=== PATIENT | male | born 1945 | race Caucasian/White ===

== ENCOUNTER 2023-10-07 20:34 | Observation (INO) | payer OTHER, MEDICARE, SELFPAY ==
[2023-10-07 15:34] VITALS: BMI 28.3
[2023-10-07 15:53] VITALS: BP 154/86
[2023-10-07 16:18] LABS: % Basophils 0.6 % (0-2); % Eosinophils 2.2 % (0-6); % Immature Granulocytes 0.3 % (0-0.5); % Lymphocytes 16.7 % (20.5-51.1); % Neutrophils 70.2 % (42.2-75.2); Absolute Basophils 0.1 10^3/uL (0-0.2); Absolute Eosinophils 0.2 10^3/uL (0-0.7); Absolute Lymphocytes 1.4 10^3/uL (1.2-3.4); Absolute Monocytes 0.9 10^3/uL (0.1-0.6); Absolute Neutrophils 6.1 10^3/uL (1.4-6.5); Hematocrit 39.7 % (39.0-52.0); Hemoglobin 13.5 g/dL (13.0-18.0); Mean Corpuscular Hgb 30.4 pg (27.0-31.0); Mean Corpuscular Volume 89.4 fL (80.0-94.0); Mean Platelet Volume 9.9 fL (7.4-10.4); Nucleated Red Blood Cells % 0 % (-); Platelet Count 284 10^3/uL (130-400); Red Blood Cell Count 4.44 10^6/uL (4.70-6.10); Red Cell Dist. Width 14.6 % (11.5-14.5); White Blood Cell Count 8.6 10^3/uL (4.8-10.8)
[2023-10-07 16:25] LABS: Erythrocyte Sed Rate 25 mm/hour (0-20)
[2023-10-07 16:31] LABS: ALT (SGPT) 19 U/L (0-50); AST (SGOT) 25 U/L (17-59); Albumin 3.9 g/dl (3.5-5.0); Alkaline Phosphatase 88 U/L (38-126); Blood Urea Nitrogen 16 mg/dl (9-20); Calcium 9.6 mg/dl (8.4-10.2); Carbon Dioxide 27 mmol/L (22-30); Chloride 100 mmol/L (98-107); Glucose 190 mg/dl (70-99); Sodium 137 mmol/L (135-145); Total Bilirubin 0.9 mg/dl (0.2-1.3); Total Protein 7.1 g/dl (6.3-8.2); eGFR > 60.00
[2023-10-07 16:35] LABS: C-Reactive Protein < 5.00 mg/L (0.0-10.00)
--- NOTE | 2023-10-07 19:32 | HPS.HSE ---
Addendum entered and electronically signed by Sarah Hooper MD 10/07/23 20:33:
I saw and examined the patient.
The CORPORATE STRATEGIST's note was reviewed and I agree with the note.
Comment:
Mr. 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 Patient was seen at Ophthalmology clinic and sent here. He had URI
symtpoms and 2 days of double and blurry vision prior to complete ptosis. On exam patient is conversant, in no acute distress. No miosis or mydriasis. EOMI. No focal neurological deficits. Will obtain head CT and if OK then OK to continue CARE NAVIGATOR
Pradaxa given sx 4 days (discussed with Dr. Boyd). Will admit for neuro checks, and further work-up with MRI/MRA. Ophtho and Neurology evals.
Original Note:
Family Physician
-
Family Physician: Sean Cabral
Chief Complaint
-
right eye pressure
History of Present Illness
77-year-old with past medical history for's palsy, arthritis, A-fib, type 2 diabetes, hypertension, cellulitis and leg presented to us with pressure behind the left eye started on Thursday. Patient went to urgent care and was prescribed amoxicillin
E-Mycin with no relief in his symptoms. Patient stated he had some cold symptoms prior to this. patient denied any pain at present. Patient stated at times it watery. Patient denied any headache, dizziness, syncopal episode patient denied any
fever, chills, chest pain, short of breath.. Patient denied any abdominal pain, nausea, vomiting, diarrhea. Patient denied dysuria hematuria.
Patient was evaluated by ophthalmology and sent him to ER for MRI/MRI
Medical History
Past Medical History
Past Medical History: Reports Other
Additional Past Medical History:
Blood spotting
Hypertension
A-fib
Arthritis
Hypertension
Past Surgical History: Reports Other
Additional Past Surgical History:
Appendectomy
Total replacement of left knee
Total replacement of right knee
Right knee surgery
Social History
Tobacco: Non-smoker
Alcohol: None
Drug: None
Personal:
Living: With Family
Family History
Family History: Not pertinent
Allergies / Home Medications
Allergies reflects when Allergies were last updated in [facility].
Home Medications with original date entered in [facility]
Allergy/Medication List:
Allergies
Allergy/AdvReac Type Severity Reaction Status Date / Time
No Known Allergies Allergy Verified 10/07/23 15:53
Home Medications
dabigatran etexilate 150 mg capsule (Pradaxa) 150 mg PO BID Blood Clot Prevention/Tx 07/03/11
lisinopril 40 mg tablet 40 mg PO DAILY Blood Pressure 07/03/11
metoprolol tartrate 100 mg tablet 100 mg PO BID Blood Pressure 02/15/17
amlodipine 5 mg tablet 5 mg PO DAILY Blood Pressure 02/14/23
ascorbic acid (vitamin C) 1,000 mg tablet (Vitamin C) 2,000 mg PO DAILY Supplement 02/14/23
metformin 500 mg tablet 500 mg PO QPM Diabetes 02/14/23
cefazolin 10 gram solution for injection 2 g IV Q8H 42 days #126 ea 02/21/23
oxycodone 5 mg tablet 5 mg PO Q4HPRN PRN mild pain #10 tabs 02/21/23
Review of Systems
-
Constitutional: Reports No Symptoms
EENT: Reports Tearing and Other
Respiratory: Reports No Symptoms
Cardiac: Reports No Symptoms
Abdomen/GI: Reports No Symptoms
: Reports No Symptoms
Musculoskeletal: Reports No Symptoms
Skin: Reports No Symptoms
Neurological: Reports No Symptoms
Endocrine: Reports No Symptoms
Hematologic/Lymphatic: Reports No Symptoms
Psych: Reports No Symptoms
Physical Exam
Vital Signs
Vital Signs
Temp Pulse Resp BP Pulse Ox
98.0 F 78 17 154/86 99
10/07/23 15:53 10/07/23 15:53 10/07/23 15:53 10/07/23 15:53 10/07/23 15:53
Physical Exam
General: Well Developed, Well Nourished and No Apparent Distress
HEENT: NormoCephalic, Moist mucous membranes and Atraumatic
Respiratory: Clear
Cardiac: S1/S2 and Regular Rhythm; No Murmur or Rub
GI: Soft, Non Tender, Non Distended and Normal Bowel Sounds; No Organomegaly
Rectal: Deferred by Provider
Musculoskeletal: No Clubbing, No Cyanosis and No Edema
Skin: No Rash
Neuro: AO x 3 and Nonfocal/grossly intact
Psych: Calm
Laboratory Results
-
10/07/23 16:02
10/07/23 16:02
Laboratory Results
Total Bilirubin 0.9 mg/dl (0.2-1.3) 10/07/23 16:02
AST 25 U/L (17-59) 10/07/23 16:02
ALT 19 U/L (0-50) 10/07/23 16:02
Alkaline Phosphatase 88 U/L (38-126) 10/07/23 16:02
Data Reviewed
-
Lab Data: Labs Reviewed by me
Impression/Plan
-
# Left eye palsy unclear cause r/o CVA/MG
-CRP normal, ESR 25
-MRI/MRI in the morning
-neurology and ophthalmology consulted
-stoke protocol
-hold asa
-hold Pradaxa until CT head resulted
-obtain a1c, lipid profile
# History of bilateral knee septic arthritis
-on Keflex prophylactically
# History of chronic diastolic CHF and pulmonary hypertension
#Paroxysmal AFIB
-on Pradaxa
-Cont Metoprolol tartrate 100 mg po bid
-obtain EKG
#HTN
-resumed CARE NAVIGATOR lisinopril
-continue CARE NAVIGATOR amlodipine, metoprolol
#DM
-ISS
CHO diet
#DVT PPx-continue Pradaxa.
#FULL CODE
--- NOTE | 2023-10-07 19:51 | ED.GENMED ---
History of Present Illness
General
Chief Complaint: Eye Problems
Source: patient and spouse
Exam Limitations: none
Time Seen by Provider: 10/07/23 18:36
Nursing documentation reviewed up to this point in time: agreed with
Travel History
Have you had any contact with someone who has COVID-19?: No
Do you have any symptoms of coronavirus? Fever > 100 degrees, chills, cough, shortness of breath, sore throat, loss of taste or smell, muscle aches, or headache?: No
History of Present Illness
History of Present Illness:
77-year-old male with past medical history of A-fib currently on Pradaxa, hypertension hyperlipidemia, diabetes presenting to the emergency department from his nuclear operations specialist with concerns of structural lesion or aneurysm causing 3rd nerve palsy to
the left eyelid. Symptoms have been ongoing for a few days. Denies any additional symptoms.
Past History
Past History
ED Past Medical History: Arrthythmia and HTN
ED Past Surgical History: Appendectomy and Orthopedic
Social History
Tobacco: Non-smoker
Alcohol: None
Drug: None
Personal:
Living: with family
Employment: Employed
Family History
Family History: Other (Noncontributory)
Review of Systems
Review of Systems
Allergies reviewed?: Yes
All Other Systems: ROS reviewed and negative except as documented in HPI and ROS
Phy Exam
Physical Exam
Physical Exam:
GENERAL: Alert , in no apparent distress
EYE: pupils equal and reactive
NECK: Supple, no significant adenopathy.
ENT: Left eyelid closed right eyelid normal, o/p clr, mmm.
CARDIAC: Regular rate and rhythm .
LUNGS: Clear breath sounds bilaterally, no acute respiratory distress, no wheezes/rales/rhonchi
ABDOMEN: Soft, without focal tenderness, no r/g, no cvat
NEUROLOGICAL: Alert and oriented, no focal neuro deficits 5/5 upper and lower extremity strength normal sensation palpated bilaterally normal finger-nose and [id number] no pronator drift
SKIN: Warm and dry, skin intact.
MUSCULOSKELETAL: No edema, well perfused.
PSYCH: Normal and appropriate interaction.
Course
Orders/Labs/Results
Orders:
Orders
10/07/23 16:02
CRP [C-Reactive Protein] Urgent
Complete Blood Count/With Diff Urgent
Comprehensive Metabolic Panel Urgent
Erythrocyte Sed Rate Urgent
10/07/23 19:23
[facility] mra [MA [facility]] Routine
Comment:
Reason For Exam: MRA brain, left eye palsy
Recent pill cam endoscopy?: No
10/07/23 19:24
MRI Brain [MR Brain W/o & With Contrast] Routine
Comment:
Reason For Exam: left eye palsy
Recent pill cam endoscopy?: No
10/07/23 19:54
Admit/Transfer Patient As Directed
Co-Sign Provider:
Level of Care: Observation services
Assign to:: Telemetry
Physician / Group: piper vail
Diagnosis: r/o acute CVA
Reason for Telemetry: CVA/TIA
Date to Stop Telemetry: 10/10/23
Time to Stop Telemetry: 11:00
10/07/23 19:56
Code Status As Directed
Resuscitation Status: Full Code
10/07/23 20:00
EKG [Electrocardiogram (*1)] Stat
Reason for Study: Atrial Fibrillation
CT Head W/o Iv Contrast Routine
Comment:
Reason For Exam: stroke/tia
10/07/23 20:05
Cephalexin Monohydrate [Keflex] 500 mg PO NOW STA
10/07/23 21:31
Acetaminophen [Tylenol/Feverall] 650 mg RECTAL Q4HPRN PRN
Acetaminophen [Tylenol] 650 mg PO Q4HPRN PRN
Atorvastatin [Lipitor] 40 mg PO QPM
Dextrose 50%-Water [Dextrose 50% Syringe] 12.5 grams IV [id number] PRN
Glucagon [GlucaGen] 1 mg IM PRN PRN
10/07/23 21:31
Case Management Consult ONCE
Case Management Consult: Discharge Planning
Comment: stroke/tia
Consult Ophthamology [OPHTHAMOLOGY CONSULT] Routine
Consulting Provider: Deondre Porter
Was physician already notified: Yes
DIETARY CONSULT Routine
Reason for Consult: stroke/TIA
NEUROLOGY CONSULT Urgent
Consulting Provider: Juan Boyd
Was physician already notified: Yes
Account Executive Urgent
Activity As Directed
Activity Level: As Tolerated
Bedside Glucose Monitoring As Directed
Frequency: AC&HS
Comment: Change to q6h if pt on TPN, tube feeding or not eating
NIH Stroke Scale As Directed
Directions: Per protocol
Comment: every shift and with any change in condition or mental status
Neurological Checks As Directed
Frequency: q4h
Additional Instructions:: q4h x 24h upon admission to the floor, then qshift & with any change in condition
and mental status
Patient Education As Directed
Type: Stroke education packet
Comment: provide to patient and family
Pneumatic Compression Sleeves As Directed
Type: Thigh high
Vital Signs As Directed
Frequency: Per unit guidelines
Ot Eval And Treat Routine
Pt Eval And Treat Routine
Activity Level: As Tolerated
Speech Therapy Eval & Treat Routine
DX Deep Vein Thrombosis Video Routine
10/08/23 Breakfast
2000 calorie (17 carb) Diabetic
At Your Request: Full Participation
Basic Metabolic Panel IN AM
Cardiovascular Evaluation IN AM
Complete Blood Count/No Diff IN AM
Glycohemoglobin (HgbA1c) IN AM
10/08/23 07:30
Insulin Aspart Corrective Low [Novolog Flexpen-Low Resistance] See Protocol SC AC
10/08/23 08:00
Amlodipine [Norvasc] 5 mg PO DAILY
Lisinopril [Zestril] 40 mg PO DAILY
Metoprolol [Lopressor] 100 mg PO BID
10/10/23 11:00
DC Protocol for Telemetry ONCE
Abnormal Lab Results
10/07/23
16:02
RBC 4.44 L 10^6/uL
(4.70-6.10)
RDW 14.6 H %
(11.5-14.5)
Absolute Monos (auto) 0.9 H 10^3/uL
(0.1-0.6)
Lymphocytes % 16.7 L %
(20.5-51.1)
Monocytes % 10.0 H %
(1.7-9.3)
ESR 25 H mm/hour
(0-20)
Glucose 190 H mg/dl
(70-99)
10/07/23 16:02
10/07/23 16:02
Vital Signs
Initial and Last Documented VS:
Initial Vital Signs
Temp Pulse Resp BP Pulse Ox
98.0 F 78 17 154/86 99
10/07/23 15:53 10/07/23 15:53 10/07/23 15:53 10/07/23 15:53 10/07/23 15:53
Last Documented Vital Signs
Temp Pulse Resp BP Pulse Ox
98.0 F 90 18 171/99 98
10/07/23 15:53 10/07/23 20:07 10/07/23 20:07 10/07/23 20:07 10/07/23 20:07
MDM/Problems Addressed
MDM/Problems Addressed:
77-year-old male presenting to the emergency department today with concerns of left-sided eyelid dysfunction of the past few days. He was seen by his nuclear operations specialist and sent to the emergency department for further assessment of structural lesion.
Otherwise neurologic examination is normal here plan for MRI. Admitted pending this. Stable in the ER.
*Critical Care Note
Total Time (30-74mins, 75-104mins- exclusive of procedures): Not Applicable
ED Attending Note
-
Portions of this chart may have been created with voice recognition software.� Occasional wrong word or��sound alike� substitutions may have occurred due to the inherent limitations of voice recognition software.
Discharge Plan
Departure
Patient Disposition: Admit
Date of Disposition: 10/07/23
Time of Disposition: 20:32
Admit to: Telemetry
Admit to doctor: Rufus
Presentation/result/management discussed w/ accepting MD/DO: Hospitalist
Patient with high blood pressure during this ER visit?: No
Condition: Good
Covid-19: Not Applicable
Discharge Problem:
Cranial nerve III palsy
Interventions
Interventions:
*Risk Screen - Suicide Last Done: 10/07/23 20:12
*General Assessment Last Done: 10/07/23 20:11
*Neglect/Abuse Screening Last Done: 10/07/23 20:12
*ED COVID-19 Vaccine History Last Done: 10/07/23 20:11
*Nursing Disposition Last Done: 10/07/23 21:21
Discharge Date and Time
Discharge Date/Time: 10/07/23 21:22
[2023-10-07 20:07] VITALS: BP 171/99
[2023-10-07] MEDS: KEFLEX 500 MG PO (20:21)
[2023-10-07 21:45] LABS: Glucose - Point of Care 148 mg/dl (70-99)
[2023-10-07 21:49] VITALS: BP 157/96
[2023-10-07 21:50] VITALS: BMI 28.4
[2023-10-07 22:35] VITALS: BMI 28.1
[2023-10-07] MEDS: LIPITOR 40 MG PO (22:36)
[2023-10-07] MEDS: PRADAXA 150 MG PO (22:36)
[2023-10-07] MEDS: LOPRESSOR 100 MG PO (22:38)
[2023-10-07] MEDS: ZESTRIL 40 MG PO (22:42)
[2023-10-08 03:00] VITALS: BP 157/90
[2023-10-08] MEDS: TYLENOL 650 MG PO (04:18)
[2023-10-08 06:00] VITALS: BMI 28.1
[2023-10-08 06:23] LABS: Hemoglobin 12.7 g/dL (13.0-18.0); Mean Corp Hgb Conc. 34.3 g/dL (33.0-37.0); Mean Corpuscular Hgb 30.5 pg (27.0-31.0); Mean Corpuscular Volume 88.9 fL (80.0-94.0); Platelet Count 263 10^3/uL (130-400); Red Blood Cell Count 4.16 10^6/uL (4.70-6.10); Red Cell Dist. Width 14.3 % (11.5-14.5); White Blood Cell Count 9.5 10^3/uL (4.8-10.8)
[2023-10-08 06:45] LABS: Blood Urea Nitrogen 11 mg/dl (9-20); Calcium 8.9 mg/dl (8.4-10.2); Carbon Dioxide 26 mmol/L (22-30); Chloride 104 mmol/L (98-107); Estimated Creatinine Clearance 100 ml/min; Glucose 143 mg/dl (70-99); HDL Cholesterol 36 mg/dl; LDL Cholesterol, Calculated 115 mg/dl; Potassium 3.8 mmol/L (3.5-5.1); Sodium 134 mmol/L (135-145); Total Cholesterol 209 mg/dl (50-199); Triglyceride 290 mg/dl (10-149); Very Low Density Lipoprotein 58 mg/dl (0-30); eGFR > 60.00
[2023-10-08 06:55] LABS: Glucose - Point of Care 133 mg/dl (70-99)
[2023-10-08 07:35] VITALS: BP 143/80
[2023-10-08] MEDS: NOVOLOG FLEXPEN-LOW RESISTANCE SC ×2 (08:15→17:04)
[2023-10-08] MEDS: NORVASC 5 MG PO (08:16)
[2023-10-08] MEDS: LOPRESSOR 100 MG PO (08:16)
[2023-10-08] MEDS: FLUSH (NSS) 1 FLUSH IV (08:17)
[2023-10-08] MEDS: ZESTRIL 40 MG PO (08:17)
[2023-10-08] MEDS: PRADAXA 150 MG PO (08:17)
[2023-10-08 09:24] LABS: Glycohemoglobin (HgbA1c) 7.3 % (4.0-5.6)
--- NOTE | 2023-10-08 09:27 | CON.NEURO4 ---
Addendum entered and electronically signed by Arnoldo Kuhn MD 10/08/23 16:52:
I saw and evaluated patient, reviewed the note by Tressa Wu.
77 year old man with history of atrial fibrillation, obesity, diabetes presenting to hospital because of left eye ptosis developing over past few days with binocular diplopia present for about 8-9 days. Had a recent viral URI a few weeks ago. No
head trauma, no unusual headaches. Has had a history of some self resolving diplopia in the past, no dysphagia dysarthria or limb weakness or proximal limb weakness.
Neurologic exam showd left eye ptosis, normal pupils reactive to light and symmetric, EOM's are normal on the right eye, EOM's on the left eye showed impaired elevation depression and adduction. Otherwise normal neurologic exam.
MRI brain with no infarct, I see no aneurysm in posterior circulation of MRA head.
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
REcommendations;
-COnservative management and observation
-Ophthalmology follow up in 4-6 weeks
-Continued working on diabetes, healthy weight, vascular risk factors
-Do not recommend steroids
-Expect improvement in the symptoms over several weeks
-No ther inpatient workup or monitoring felt required from neurologic perspective
Original Note:
Documented by User: Tressa Castellano NP 10/08/23 13:32
Consultation - Neurology 4
-
CONSULTING PHYSICIAN: Loree Kuhn MD
REFERRING PHYSICIAN: Hospitalists/KENNY Noriega
DICTATED BY: KENNY Dhaliwal
DATE/TIME OF REQUEST: 10/07/23
DATE/TIME OF CONSULTATION: 10/08/23
Reason for Consultation: Left eye ptosis
History of Present Illness:
This is a 77-year-old right-handed male who has presented to the hospital on 10/07/23 per the direction of his special effects technician Dr. Lira for concern of a structural abnormality causing a left eye 3rd cranial nerve palsy. Patient reports that he
has had a cold for the past two weeks. 8 days ago on 09/30/23, he reports waking up in the morning with mild [id number]-[id number] binocular double vision that resolved with closing one eye. This resolved in less than an hour, but the same event happened
again the following two mornings. Then on 10/03/23, he reports waking up with his left eyelid closed/not opening. He was evaluated at an urgent care and was given eye ointment antibiotics and told he has an eye infection. He was able to see
Soraya yesterday (10/07/23), who referred him to the ER for further evaluation. CT head was obtained in the ER and is negative for any acute abnormalities. He denies any headache, dizziness, speech/swallow difficulty, nausea, unusual weight loss,
taste/smell changes, ear fullness, numbness, weakness, chest pain, and palpitations. He did have a mild headache last night, which resolved when he took Tylenol. He also reports chronic bilateral tinnitus.
He reports that he had right eye Guerrero's palsy in 1998 that resolved in several weeks. He also has had two instances of binocular diplopia in the past that resolved with closing one eye, once in 2015, and again in 2020. He did not have any eyelid
drooping with those events. He had MRI brain imaging in 2020 that was negative for any acute findings. This resolved spontaneously in 1-2 weeks. He is taking Pradaxa for Afib and denies missing any doses.
Past Medical History: Right-sided Guerrero's Palsy 1998, double vision 2015 and 2020, Afib (Pradaxa), HTN, HLD, NIDDM, hypothyroidism, cardiomyopathy, DJD, septic R knee
Surgical History: Appendectomy, B/L TKR, R knee revision
Family History: Reviewed and noncontributory.
Social History: Former tobacco. Rare alcohol. Denies illicit drug use.
Allergies: No known allergies.
Home Medications: See below.
Review of Symptoms:
Patient denies any fever, headache, chest pain, shortness of breath, GI or symptoms.
�Per the HPI.�All systems are reviewed negative except above.
Physical Exam:
The patient is afebrile, abdomen is nondistended, breathing is unlabored, skin is warm and dry, R knee deformity.
NIH Stroke Scale:
I performed the NIH stroke scale on the patient on 10/08/23 at 0915. The patient scored 2 points on the NIH stroke scale assessment, which were assigned as follows: See below.
Neurologic Examination:
The patient is awake, alert and oriented x 3. He is able to follow commands and answer questions appropriately. There is no aphasia or dysarthria. On cranial nerve assessment, pupils are 3 mm bilateral, round and reactive to light and
accommodation. + left eye esotropia. +left eye ptosis. Visual daniels are full. Extraocular movements are reduced in the left eye only with upward, downward, and leftward gaze. Facial sensations are intact and bilaterally symmetrical. Hearing is
intact bilaterally to normal conversation volume. Tongue palate and uvula are midline. Motor strengths are 5/5 bilateral upper (limited ROM in R shoulder due to pain), 2/5 RLE (limited evaluation due to pain, and 5/5 LLE. There is no drift or
involuntary movement noted. Deep tendon reflexes are 1+ bilateral upper and lower extremities and Babinski is absent bilaterally. There was no extinction noted on double simultaneous stimulation. Coordination is intact by finger to chin bilaterally.
Negative ice pack test.
Lab Results: See below.
Neuro Imaging:
1. CT Head 10/07/23: No acute intracranial abnormality noted. Mild atrophy. Stable. Mild periventricular small vessel ischemic disease. Stable.
Differentials for the patient's presentation include:
1. Left eye cranial nerve 3 palsy likely due to chronic small vessel disease/ischemia.
2. Low concern for brainstem stroke or large vascular abnormality causing 3rd nerve palsy, but cannot entirely exclude this diagnosis.
Patient has the following risk factors for their symptoms: NIDDM, HLD, HTN, Afib, age, recent virus
Recommendations:
-Continue home Pradaxa
-Goal normotension
-MRI brain noncontrast/MRA head ordered/pending
-LDL goal <70. LDL is 115. Atorvastatin 40mg daily initiated.
-Goal normoglycemia, hbA1c is 7.3.
-NIHSS and neurological checks per unit guidelines.
-Provide patient with a stroke education packet.
-PT/OT/St evaluations
-Will follow pending results. Patient can follow-up with Neurology as an outpatient, may see the GAME MASTER or one of the physicians.
Discussed patient care with: Dr. Kuhn, the patient
Vital Signs and Labs
-
Vital Signs and Labs:
Vital Signs
Temp Pulse Resp BP Pulse Ox
97.5 F 55 16 154/82 99
10/08/23 11:42 10/08/23 11:42 10/08/23 11:42 10/08/23 11:42 10/08/23 11:42
Lab Results
10/08/23 06:04
10/08/23 06:04
Sodium 134 mmol/L (135-145) L 10/08/23 06:04
Potassium 3.8 mmol/L (3.5-5.1) 10/08/23 06:04
BUN 11 mg/dl (9-20) 10/08/23 06:04
Glucose 143 mg/dl (70-99) H 10/08/23 06:04
Calcium 8.9 mg/dl (8.4-10.2) 10/08/23 06:04
LDL Cholesterol, Calc 115 mg/dl 10/08/23 06:04
Medications
-
Active Medications
Generic Name Dose Route Start Last Admin
Trade Name Freq PRN Reason Stop Dose Admin
Acetaminophen 650 mg 10/07/23 21:31
Acetaminophen 650 Mg Rectal Suppository RECTAL 11/04/23 21:30
Q4HPRN PRN
SCHROEDER, mild pain, or temp >100.4F
Acetaminophen 650 mg 10/07/23 21:31 10/08/23 04:18
Acetaminophen 325 Mg Tablet PO 11/04/23 21:30 650 mg
Q4HPRN PRN Administration
SCHROEDER, mild pain, or temp >100.4F
Amlodipine Besylate 5 mg 10/08/23 08:00 10/08/23 08:16
Amlodipine 5 Mg Tablet PO 11/05/23 07:59 5 mg
DAILY YADIRA Administration
Atorvastatin Calcium 40 mg 10/07/23 21:31 10/07/23 22:36
Atorvastatin (Lipitor) 40 Mg Tablet PO 11/04/23 21:30 40 mg
QPM YADIRA Administration
Dabigatran 150 mg 10/07/23 21:30 10/08/23 08:17
Dabigatran Etexilate (Pradaxa) 150 Mg Capsule PO 11/04/23 21:29 150 mg
BID YADIRA Administration
Dextrose 12.5 grams 10/07/23 21:31
Dextrose 50% (0.5 Grams/Ml) 50 Ml Syringe IV 11/04/23 21:30
[id number] PRN
hypoglycemia
Protocol
Glucagon 1 mg 10/07/23 21:31
Glucagon 1 Mg Vial IM 11/04/23 21:30
PRN PRN
hypoglycemia
Protocol
Insulin Aspart 0 units 10/08/23 07:30 10/08/23 12:59
Insulin Aspart Low Resistance 300 Units/3 Ml Pen.Injctr SC 11/05/23 07:29 1 units
AC YADIRA Administration
Protocol
Lisinopril 40 mg 10/08/23 08:00 10/08/23 08:17
Lisinopril 20 Mg Tablet PO 11/05/23 07:59 40 mg
DAILY YADIRA Administration
Metoprolol Tartrate 100 mg 10/08/23 08:00 10/08/23 08:16
Metoprolol 100 Mg Regular Release Tablet PO 11/05/23 07:59 100 mg
BID YADIRA Administration
Sodium Chloride 0 flush 10/07/23 22:00 10/08/23 08:17
Sodium Chloride 0.9% (Flush) Syringe IV 11/04/23 21:59 1 flush
PER PROTOCOL YADIRA Administration
Home Medications
Medication Instructions Recorded
dabigatran etexilate 150 mg 150 mg PO BID Blood Clot 07/03/11
capsule (Pradaxa) Prevention/Tx
lisinopril 40 mg tablet 40 mg PO QPM Blood Pressure 07/03/11
metoprolol tartrate 100 mg tablet 100 mg PO BID Blood Pressure 02/15/17
amlodipine 5 mg tablet 5 mg PO DAILY Blood Pressure 02/14/23
ascorbic acid (vitamin C) 1,000 mg 2,000 mg PO DAILY Supplement 02/14/23
tablet (Vitamin C)
acetaminophen 500 mg tablet 1,000 mg PO Q6H PRN shoulder pain 10/07/23
cephalexin 500 mg capsule 500 mg PO BID Infection 10/07/23
NIH Stroke Score
Subsequent NIH Scale
Date of Subsequent NIH Scale: 10/08/23
Time of Subsequent NIH Scale: 09:15
NIH Stroke Score
Level of Consciousness: 0 - Alert
LOC Questions: 0-Answers both correctly
LOC Commands: 0-Performs both correctly
Best Horizontal Gaze: 1-Partial gaze palsy
Visual Daniels: 0=Normal, no visual loss
Facial Palsy: 1=Minor paralysis
Motor - Right Arm: 0=No drift 10 seconds
Motor - Left Arm: 0=No drift 10 seconds
Motor - Right Le-No drift 5 seconds
Motor - Left Le-No drift 5 seconds
Limb Ataxia: 0-Absent
Sensation: 0-Normal
Best Language: 0-No aphasia
Dysarthria: 0-Normal
Extinction and Inattention: 0-No abnormality
Total Score:: 2

Documented by User: Arnoldo Kuhn MD 10/08/23 15:13
NIH Stroke Score
NIH Stroke Score
Total Score:: 2
[2023-10-08 10:26] VITALS: BP 157/93; PULSE 65; O2SAT 96
[2023-10-08 10:36] VITALS: BP 157/93; PULSE 68; O2SAT 95
[2023-10-08 11:26] LABS: Glucose - Point of Care 160 mg/dl (70-99)
[2023-10-08 11:42] VITALS: BP 154/82
[2023-10-08] MEDS: NOVOLOG FLEXPEN-LOW RESISTANCE 1 UNITS SC (12:59)
--- NOTE | 2023-10-08 15:17 | W.PN.HOSP.TC ---
Addendum entered and electronically signed by Nicola Moore MD 10/08/23 17:47:
MRA brain noted - no significant stenosis
While preparing dc i see ACH neg and striated muscle ab was positive - raises concern for MG.
[facility] Neurology - he will follow him in office for MG eval
In meantime i ordered the ACH and striated muscle ab.
This was discussed with the patient to follow up with neuro
Neuro cleared him for dc as well
Ppt is aware about DM and HLD tx on dc
Total time of dc 32 min
Original Note:
Today's Communication/Plan
-
cw neuro eval
Start on Metformin
Assessment / Plan
Assessment / Plan
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
-CRP normal, ESR 25
-MRI brain shows no acute stroke
-neurology input noted-ongoing evaluation for etiology
-There is association of diabetes with the isolated cranial nerve palsy and with his hemoglobin A1c 7.3 will initiate on metformin which the patient is okay with. He states his blood sugars was noted to be high in the past and hemoglobin A1c in
around eights but no treatments.
# History of bilateral knee septic arthritis
-on Keflex prophylactically
# History of chronic diastolic CHF and pulmonary hypertension
#Paroxysmal AFIB
-on Pradaxa-continue
-Cont Metoprolol tartrate 100 mg po bid
#HTN
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
#DM
-ISS
CHO diet
#DVT PPx-continue Pradaxa.
#FULL CODE
Anticipated Discharge: 24 - 48 hours
Subjective/Interval History
-
Date of Service: October 08, 2023
Persist to have left eyelid drooping.
Double vision when his left eyelid gets open
Objective Data
-
Labs:
Laboratory Results
10/08/23
06:04
WBC 9.5
Hgb 12.7 L
Hct 37.0 L
Plt Count 263
Sodium 134 L
Potassium 3.8
Chloride 104
Carbon Dioxide 26
BUN 11
Creatinine 0.7
Glucose 143 H
Calcium 8.9
Vital Signs:
Vital Signs
Temp Pulse Resp BP Pulse Ox
97.5 F 55 16 154/82 99
10/08/23 11:42 10/08/23 11:42 10/08/23 11:42 10/08/23 11:42 10/08/23 11:42
Review of Systems
-
Constitutional: Denies Fever
EENT: Denies Sore Throat
Respiratory: Denies Cough or Trouble Breathing
Cardiac: Denies Chest Pain
Abdomen/GI: Denies Abdominal Pain, Nausea or Vomiting
Neuro: Denies Dizzy, Headache, Weakness or Numbness
Physical Exam
-
General: No Apparent Distress
HEENT: Moist Mucous Membranes
Respiratory: Clear to Auscultation
Cardiac: Regular Rhythm and S1/S2
GI: Soft
Neuro: AO x 3, No Motor Deficits and Facial Droop (loss of left nasolabial fold noted;left ptosis noted ,no meiosis . Double vision when left eyelid made open. Left eye adduction weak)
Psych: Calm
Data Reviewed
-
Labs: Labs Reviewed by me
--- NOTE | 2023-10-08 15:18 | CM ---
Addendum entered by Shawna Cabrera RN 10/09/23 08:25:
Pt dc after CM left for day.
Original Note:
Alert awake oriented patient who lives with his Aniyah who lives in a 2 story home with 4 step to enter and 14 steps to bed and bathroom. He is independent in driving and in all activities of daily living.he has no adaptive devices.He was
offered VN he declined need.Pt said he has an ortho appt tomorrow he needs to keep.[facility]endar[employer] letter given explained . Copy given and signed copy on chart.
[facility] VN hx / [facility] history
Pharmacy [facility]
PCP DR Cabral
PLAN Home declined VN
[2023-10-08 15:46] VITALS: BP 127/82
[2023-10-08 16:49] LABS: Glucose - Point of Care 115 mg/dl (70-99)
--- NOTE | 2023-10-08 17:27 | W.DS.TRANS ---
DC Summary - [employer] [address] [employer]
-
Discharge Instructions:
Sleep Apnea Risk Intermediate
Diet Regular,Low Cholesterol
Activity As tolerated,No strenuous activity
Driving Restrictions Not until seen by your Dr
Bathing Restrictions None
Other Services PT
Instructions:
Stand-Alone Forms:
Changes to Home Medications: Yes
Discharge Medications:
DC Medications w/original date entered in [facility]
dabigatran etexilate 150 mg capsule (Pradaxa) 150 mg PO BID Blood Clot Prevention/Tx 07/03/11
lisinopril 40 mg tablet 40 mg PO QPM Blood Pressure 07/03/11
metoprolol tartrate 100 mg tablet 100 mg PO BID Blood Pressure 02/15/17
amlodipine 5 mg tablet 5 mg PO DAILY Blood Pressure 02/14/23
ascorbic acid (vitamin C) 1,000 mg tablet (Vitamin C) 2,000 mg PO DAILY Supplement 02/14/23
acetaminophen 500 mg tablet 1,000 mg PO Q6H PRN shoulder pain 10/07/23
atorvastatin 40 mg tablet 40 mg PO QPM #30 tabs 10/08/23
metformin 500 mg tablet 500 mg PO BID@0800,1700 #60 tabs 10/08/23
Home Medication Changes
New medications - Metformin, atorvastatin
Pending Results: No
[2023-10-08] MEDS: GLUCOPHAGE 500 MG PO (17:36)
[2023-10-08] MEDS: LIPITOR 40 MG PO (17:36)
--- NOTE | 2023-10-08 17:47 | W.DS.TRANS ---
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
-
Discharge Instructions:
Sleep Apnea Risk Intermediate
Diet Regular,Low Cholesterol
Activity As tolerated,No strenuous activity
Driving Restrictions Not until seen by your Dr
Bathing Restrictions None
Other Services PT
Instructions:
Stand-Alone Forms:
Changes to Home Medications: Yes
Discharge Medications:
DC Medications w/original date entered in [facility]
dabigatran etexilate 150 mg capsule (Pradaxa) 150 mg PO BID Blood Clot Prevention/Tx 07/03/11
lisinopril 40 mg tablet 40 mg PO QPM Blood Pressure 07/03/11
metoprolol tartrate 100 mg tablet 100 mg PO BID Blood Pressure 02/15/17
amlodipine 5 mg tablet 5 mg PO DAILY Blood Pressure 02/14/23
ascorbic acid (vitamin C) 1,000 mg tablet (Vitamin C) 2,000 mg PO DAILY Supplement 02/14/23
acetaminophen 500 mg tablet 1,000 mg PO Q6H PRN shoulder pain 10/07/23
atorvastatin 40 mg tablet 40 mg PO QPM #30 tabs 10/08/23
metformin 500 mg tablet 500 mg PO BID@0800,1700 #60 tabs 10/08/23
Home Medication Changes
New med - metformin, atorvastatin
Pending Results: Yes (serology for MG - ACH ab and striated muscle antibody)
--- NOTE | 2023-10-08 17:48 | W.DCSUMMARY ---
Discharge Summary
Discharge Data
Date of Admission: 10/07/23
Date of Discharge: 10/08/23
-
Pending Results: Yes (ACH ab and striated muscle antibody)
Hospital Course
Primary diagnosis:
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
Hyperlipidemia
Secondary diagnosis;
Diabetes mellitus - diet controlled per patient
Essential hypertension
Hospital course.
Patient presented with acute left isolated 3rd nerve palsy with ptosis and diplopia. He had no mieosis or anyhydrosis on that side.
No other neurological deficit. Seen by Neurology - stroke rule out by MRI brain.
Unclear eitology , could be small vessel disease .His HbA1C was 7.3 and he told me it was high in past but not on treatments- metformin was started. His LDL was 115 and lipitor was intiated as well. BP was under goal.
While preparing his discharge paper work i found in 2016 he had lab work for MG - his ACH ab was neg but his striaed mucle antibody was positive but at low titer. MG can present with unilateral cranial nerve palsies - so a repeat ACH ab and stratied
muscle ab was requested prior to discharge. Advised to follow with neurology in 4 weeks.
[facility] [employer] on board
Neuro
Discharge Plan
-
Patient Disposition: Home with Home Care
Diet: Regular and Low Cholesterol
Activity: As tolerated and No strenuous activity
Driving Restrictions: Not until seen by your Dr
Bathing Restrictions: None
Other Services: PT
Referrals:
Arnoldo Kuhn MD [Active] - in four to six weeks
Sean Cabral MD [Family Provider] - in less than 1 week
Deondre Porter MD [Active] - in one to two weeks
Prescriptions:
New
atorvastatin 40 mg Tablet
40 mg PO QPM Qty: 30 0RF
metformin 500 mg Tablet
500 mg PO BID@0800,1700 Qty: 60 0RF
Continued
lisinopril 40 MG tablet
40 mg PO QPM
dabigatran etexilate [Pradaxa] 150 MG capsule
150 mg PO BID
metoprolol tartrate 100 MG tablet
100 mg PO BID
ascorbic acid (vitamin C) [Vitamin C] 1,000 mg Tablet
2,000 mg PO DAILY
amlodipine 5 mg tablet
5 mg PO DAILY
acetaminophen 500 mg Tablet
1,000 mg PO Q6H PRN (Reason: shoulder pain)
Discontinued
cephalexin [Keflex] 500 mg Capsule
500 mg PO BID
Discharge Orders:
Discharge Patient (As Directed); Ordered 10/08/23
Ordered By: Nicola Moore
[2023-10-08 20:07] LABS: Hepatitis C Antibody Negative (Negative)
[2023-10-12 15:53] LABS: Striated Muscle Ab Screen Detected (<1:40)
[2023-10-15 20:18] LABS: Acetylcholine Receptor Bind Ab 0.1 nmol/L (0.0-0.4)
== END 2023-10-08 19:08 | disposition home or self-care (01) ==
LOC: 4 EAST ACU 20:34
PROVIDERS: Psychiatry & Neurology Neurology; Registered Nurse; ADMITTING PHYSICIAN Student in an Organized Health Care Education/Training Program; ATTENDING PHYSICIAN Internal Medicine; EMERGENCY PHYSICIAN Emergency Medicine; FAMILY PHYSICIAN Family Medicine; OTHER PHYSICIAN Student in an Organized Health Care Education/Training Program
DX: H49.02 Third [oculomotor] nerve palsy, left eye (principal); H53.2 Diplopia; H02.402 Unspecified ptosis of left eyelid; E78.5 Hyperlipidemia, unspecified; E11.9 Type 2 diabetes mellitus without complications; I48.0 Paroxysmal atrial fibrillation; I11.0 Hypertensive heart disease with heart failure; I50.32 Chronic diastolic (congestive) heart failure; I27.20 Pulmonary hypertension, unspecified; H70.10 Chronic mastoiditis, unspecified ear; E66.9 Obesity, unspecified; M19.90 Unspecified osteoarthritis, unspecified site; Z96.653 Presence of artificial knee joint, bilateral; Z79.84 Long term (current) use of oral hypoglycemic drugs; Z68.28 Body mass index [BMI] 28.0-28.9, adult; Z79.01 Long term (current) use of anticoagulants
CPT/HCPCS: 70450; 70544; 70553; 80048; 80053; 80061; 82962; 83036; 85025; 85027; 85652; 86041; 86140; 86255; 86256; 86803; 87070; 92523; 93005; 97162; 97166; 99285; G0378

== ENCOUNTER → 2024-01-23 11:29 | Outpatient (REF) | payer OTHER, MEDICARE, SELFPAY ==
[2024-01-23 12:40] LABS: % Basophils 0.8 % (0-2); % Eosinophils 6.2 % (0-6); % Immature Granulocytes 0.2 % (0-0.5); % Lymphocytes 14.2 % (20.5-51.1); % Monocytes 9.8 % (1.7-9.3); % Neutrophils 68.8 % (42.2-75.2); Absolute Basophils 0.1 10^3/uL (0-0.2); Absolute Eosinophils 0.6 10^3/uL (0-0.7); Absolute Lymphocytes 1.4 10^3/uL (1.2-3.4); Absolute Neutrophils 6.7 10^3/uL (1.4-6.5); Hematocrit 37.1 % (39.0-52.0); Mean Corp Hgb Conc. 32.3 g/dL (33.0-37.0); Mean Corpuscular Hgb 30.5 pg (27.0-31.0); Mean Corpuscular Volume 94.2 fL (80.0-94.0); Mean Platelet Volume 9.5 fL (7.4-10.4); Nucleated Red Blood Cells % 0 % (-); Platelet Count 334 10^3/uL (130-400); Red Blood Cell Count 3.94 10^6/uL (4.70-6.10); Red Cell Dist. Width 13.8 % (11.5-14.5); White Blood Cell Count 9.8 10^3/uL (4.8-10.8)
[2024-01-23 12:58] LABS: Erythrocyte Sed Rate 26 mm/hour (0-20)
== END ==
LOC: REG 11:29
PROVIDERS: ATTENDING PHYSICIAN Physician Assistant Surgical; FAMILY PHYSICIAN Family Medicine
DX: Z96.651 Presence of right artificial knee joint (principal)
CPT/HCPCS: 36415; 85025; 85652; 86140

== ENCOUNTER → 2024-01-30 10:16 | Outpatient (REF) | payer OTHER, MEDICARE, SELFPAY | LOC: RAD 10:16 | PROVIDERS: ATTENDING PHYSICIAN Specialist; FAMILY PHYSICIAN Family Medicine | DX: M25.512 Pain in left shoulder (principal) | CPT/HCPCS: 73200 ==

== ENCOUNTER → 2024-03-10 11:05 | Outpatient (REF) | payer OTHER, MEDICARE, SELFPAY ==
[2024-03-10 12:05] LABS: % Eosinophils 3.9 % (0-6); % Immature Granulocytes 0.4 % (0-0.5); % Lymphocytes 15.8 % (20.5-51.1); % Monocytes 9.9 % (1.7-9.3); Absolute Basophils 0.1 10^3/uL (0-0.2); Absolute Eosinophils 0.3 10^3/uL (0-0.7); Absolute Lymphocytes 1.3 10^3/uL (1.2-3.4); Absolute Monocytes 0.8 10^3/uL (0.1-0.6); Absolute Neutrophils 5.6 10^3/uL (1.4-6.5); Hematocrit 37.1 % (39.0-52.0); Hemoglobin 12.6 g/dL (13.0-18.0); Mean Corpuscular Hgb 29.9 pg (27.0-31.0); Mean Corpuscular Volume 88.1 fL (80.0-94.0); Mean Platelet Volume 9.2 fL (7.4-10.4); Nucleated Red Blood Cells % 0 % (-); Platelet Count 326 10^3/uL (130-400); Red Blood Cell Count 4.21 10^6/uL (4.70-6.10); Red Cell Dist. Width 13.8 % (11.5-14.5); White Blood Cell Count 8.2 10^3/uL (4.8-10.8)
[2024-03-10 12:53] LABS: Erythrocyte Sed Rate 20 mm/hour (0-20)
[2024-03-10 13:04] LABS: ALT (SGPT) 12 U/L (0-50); AST (SGOT) 24 U/L (17-59); Albumin 4.1 g/dl (3.5-5.0); Alkaline Phosphatase 103 U/L (38-126); Blood Urea Nitrogen 12 mg/dl (9-20); Calcium 9.6 mg/dl (8.4-10.2); Carbon Dioxide 21 mmol/L (22-30); Chloride 106 mmol/L (98-107); Glucose 107 mg/dl (70-99); HDL Cholesterol 41 mg/dl; LDL Cholesterol, Calculated 107 mg/dl; Sodium 137 mmol/L (135-145); Total Bilirubin 0.8 mg/dl (0.2-1.3); Total Cholesterol 179 mg/dl (50-199); Total Protein 6.6 g/dl (6.3-8.2); Triglyceride 159 mg/dl (10-149); Very Low Density Lipoprotein 31 mg/dl (0-30); eGFR > 60.00
[2024-03-10 13:08] LABS: C-Reactive Protein < 5.00 mg/L (0.0-10.00)
[2024-03-10 13:45] LABS: Glycohemoglobin (HgbA1c) 6.5 % (4.0-5.6)
== END ==
LOC: REG 11:05
PROVIDERS: ATTENDING PHYSICIAN Specialist; FAMILY PHYSICIAN Family Medicine
DX: E11.59 Type 2 diabetes mellitus with other circulatory complications (principal); Z86.79 Personal history of other diseases of the circulatory system; I48.21 Permanent atrial fibrillation; Z01.818 Encounter for other preprocedural examination
CPT/HCPCS: 36415; 80053; 80061; 83036; 85025; 85652; 86140

== ENCOUNTER → 2024-04-05 08:09 | Outpatient (REF) | payer OTHER, MEDICARE, SELFPAY | LOC: WOUND 08:09 | PROVIDERS: ATTENDING PHYSICIAN Surgery; FAMILY PHYSICIAN Family Medicine | DX: I87.311 Chronic venous hypertension (idiopathic) with ulcer of right lower extremity (principal); L97.211 Non-pressure chronic ulcer of right calf limited to breakdown of skin; I87.2 Venous insufficiency (chronic) (peripheral); E11.59 Type 2 diabetes mellitus with other circulatory complications; I89.0 Lymphedema, not elsewhere classified; I48.21 Permanent atrial fibrillation; I34.0 Nonrheumatic mitral (valve) insufficiency; M19.012 Primary osteoarthritis, left shoulder; I73.9 Peripheral vascular disease, unspecified; Z96.651 Presence of right artificial knee joint; Z86.79 Personal history of other diseases of the circulatory system; Z79.01 Long term (current) use of anticoagulants | CPT/HCPCS: 29581; 99204 ==

== ENCOUNTER → 2024-04-11 13:32 | Outpatient (REF) | payer OTHER, MEDICARE, SELFPAY | LOC: WOUND 13:32 | PROVIDERS: ATTENDING PHYSICIAN Surgery; FAMILY PHYSICIAN Family Medicine | DX: I87.311 Chronic venous hypertension (idiopathic) with ulcer of right lower extremity (principal); L97.211 Non-pressure chronic ulcer of right calf limited to breakdown of skin; I87.2 Venous insufficiency (chronic) (peripheral); E11.59 Type 2 diabetes mellitus with other circulatory complications; I89.0 Lymphedema, not elsewhere classified; I48.21 Permanent atrial fibrillation; I34.0 Nonrheumatic mitral (valve) insufficiency; M19.012 Primary osteoarthritis, left shoulder; I73.9 Peripheral vascular disease, unspecified; Z96.651 Presence of right artificial knee joint; Z79.01 Long term (current) use of anticoagulants | CPT/HCPCS: 99212 ==

== ENCOUNTER → 2024-04-28 10:04 | Outpatient (REF) | payer OTHER, MEDICARE, SELFPAY | LOC: WOUND 10:04 | PROVIDERS: ATTENDING PHYSICIAN Surgery; FAMILY PHYSICIAN Family Medicine | DX: I87.311 Chronic venous hypertension (idiopathic) with ulcer of right lower extremity (principal); L97.211 Non-pressure chronic ulcer of right calf limited to breakdown of skin; L97.811 Non-pressure chronic ulcer of other part of right lower leg limited to breakdown of skin; I87.2 Venous insufficiency (chronic) (peripheral); E11.59 Type 2 diabetes mellitus with other circulatory complications; I89.0 Lymphedema, not elsewhere classified; I48.21 Permanent atrial fibrillation; I34.0 Nonrheumatic mitral (valve) insufficiency; M19.012 Primary osteoarthritis, left shoulder; I73.9 Peripheral vascular disease, unspecified; Z96.651 Presence of right artificial knee joint; Z86.79 Personal history of other diseases of the circulatory system; Z79.01 Long term (current) use of anticoagulants | CPT/HCPCS: 29581; 99213 ==

== ENCOUNTER → 2024-05-04 09:50 | Outpatient (REF) | payer OTHER, MEDICARE, SELFPAY | LOC: WOUND 09:50 | PROVIDERS: ATTENDING PHYSICIAN Surgery; FAMILY PHYSICIAN Family Medicine | DX: I87.311 Chronic venous hypertension (idiopathic) with ulcer of right lower extremity (principal); L97.211 Non-pressure chronic ulcer of right calf limited to breakdown of skin; L97.811 Non-pressure chronic ulcer of other part of right lower leg limited to breakdown of skin; I87.2 Venous insufficiency (chronic) (peripheral); E11.59 Type 2 diabetes mellitus with other circulatory complications; I89.0 Lymphedema, not elsewhere classified; I48.21 Permanent atrial fibrillation; I34.0 Nonrheumatic mitral (valve) insufficiency; M19.012 Primary osteoarthritis, left shoulder; I73.9 Peripheral vascular disease, unspecified; Z86.79 Personal history of other diseases of the circulatory system; Z96.651 Presence of right artificial knee joint; Z79.01 Long term (current) use of anticoagulants | CPT/HCPCS: 99212 ==

== ENCOUNTER → 2024-05-10 13:52 | Outpatient (REF) | payer OTHER, MEDICARE, SELFPAY | LOC: WOUND 13:52 | PROVIDERS: ATTENDING PHYSICIAN Surgery; FAMILY PHYSICIAN Family Medicine | DX: I87.311 Chronic venous hypertension (idiopathic) with ulcer of right lower extremity (principal); L97.211 Non-pressure chronic ulcer of right calf limited to breakdown of skin; L97.811 Non-pressure chronic ulcer of other part of right lower leg limited to breakdown of skin; I87.2 Venous insufficiency (chronic) (peripheral); E11.59 Type 2 diabetes mellitus with other circulatory complications; I89.0 Lymphedema, not elsewhere classified; I48.21 Permanent atrial fibrillation; I34.0 Nonrheumatic mitral (valve) insufficiency; M19.012 Primary osteoarthritis, left shoulder; I73.9 Peripheral vascular disease, unspecified; Z79.01 Long term (current) use of anticoagulants; Z86.79 Personal history of other diseases of the circulatory system; Z96.651 Presence of right artificial knee joint | CPT/HCPCS: 99212 ==

== ENCOUNTER → 2024-06-16 16:24 | Outpatient (REF) | payer OTHER, MEDICARE, SELFPAY ==
[2024-06-16 17:24] LABS: % Basophils 0.7 % (0-2); % Eosinophils 3.2 % (0-6); % Immature Granulocytes 0.3 % (0-0.5); % Lymphocytes 16.1 % (20.5-51.1); % Monocytes 8.8 % (1.7-9.3); % Neutrophils 70.9 % (42.2-75.2); Absolute Basophils 0.1 10^3/uL (0-0.2); Absolute Eosinophils 0.3 10^3/uL (0-0.7); Absolute Lymphocytes 1.7 10^3/uL (1.2-3.4); Absolute Monocytes 0.9 10^3/uL (0.1-0.6); Absolute Neutrophils 7.5 10^3/uL (1.4-6.5); Hematocrit 39.3 % (39.0-52.0); Hemoglobin 13.3 g/dL (13.0-18.0); Mean Corp Hgb Conc. 33.8 g/dL (33.0-37.0); Mean Corpuscular Hgb 30.5 pg (27.0-31.0); Mean Corpuscular Volume 90.1 fL (80.0-94.0); Mean Platelet Volume 9.8 fL (7.4-10.4); Nucleated Red Blood Cells % 0 % (-); Platelet Count 337 10^3/uL (130-400); Red Blood Cell Count 4.36 10^6/uL (4.70-6.10); White Blood Cell Count 10.6 10^3/uL (4.8-10.8)
[2024-06-16 17:49] LABS: Blood Urea Nitrogen 11 mg/dl (9-20); Calcium 9.1 mg/dl (8.4-10.2); Carbon Dioxide 27 mmol/L (22-30); Chloride 102 mmol/L (98-107); Glucose 156 mg/dl (70-99); Sodium 140 mmol/L (135-145); eGFR > 60.00
[2024-06-17 10:06] LABS: Glycohemoglobin (HgbA1c) 6.7 % (4.0-5.6)
== END ==
LOC: REG 16:24
PROVIDERS: ATTENDING PHYSICIAN Specialist; FAMILY PHYSICIAN Physician Assistant
DX: Z01.818 Encounter for other preprocedural examination (principal); E11.59 Type 2 diabetes mellitus with other circulatory complications
CPT/HCPCS: 36415; 80048; 83036; 85025

== ENCOUNTER → 2024-06-17 11:31 | Outpatient (REF) | payer OTHER, MEDICARE, SELFPAY | LOC: WOUND 11:31 | PROVIDERS: ATTENDING PHYSICIAN Surgery; FAMILY PHYSICIAN Family Medicine | DX: I87.311 Chronic venous hypertension (idiopathic) with ulcer of right lower extremity (principal); L97.211 Non-pressure chronic ulcer of right calf limited to breakdown of skin; I87.2 Venous insufficiency (chronic) (peripheral); E11.59 Type 2 diabetes mellitus with other circulatory complications; I89.0 Lymphedema, not elsewhere classified; Z79.01 Long term (current) use of anticoagulants; I48.21 Permanent atrial fibrillation; I34.0 Nonrheumatic mitral (valve) insufficiency; M19.012 Primary osteoarthritis, left shoulder; I73.9 Peripheral vascular disease, unspecified; Z96.651 Presence of right artificial knee joint; Z86.79 Personal history of other diseases of the circulatory system | CPT/HCPCS: 29581; 99213 ==

== ENCOUNTER → 2024-06-24 11:33 | Outpatient (REF) | payer OTHER, MEDICARE, SELFPAY | LOC: WOUND 11:33 | PROVIDERS: ATTENDING PHYSICIAN Surgery; FAMILY PHYSICIAN Family Medicine | DX: I87.311 Chronic venous hypertension (idiopathic) with ulcer of right lower extremity (principal); L97.211 Non-pressure chronic ulcer of right calf limited to breakdown of skin; I87.2 Venous insufficiency (chronic) (peripheral); E11.59 Type 2 diabetes mellitus with other circulatory complications; I89.0 Lymphedema, not elsewhere classified; I48.21 Permanent atrial fibrillation; I34.0 Nonrheumatic mitral (valve) insufficiency; Z96.651 Presence of right artificial knee joint; M19.012 Primary osteoarthritis, left shoulder; Z86.79 Personal history of other diseases of the circulatory system; Z79.01 Long term (current) use of anticoagulants; I73.9 Peripheral vascular disease, unspecified | CPT/HCPCS: 99212 ==

== ENCOUNTER → 2024-10-07 12:34 | Outpatient (REF) | payer OTHER, MEDICARE, SELFPAY | LOC: WOUND 12:34 | PROVIDERS: ATTENDING PHYSICIAN Surgery; FAMILY PHYSICIAN Family Medicine | DX: I87.312 Chronic venous hypertension (idiopathic) with ulcer of left lower extremity (principal); L97.221 Non-pressure chronic ulcer of left calf limited to breakdown of skin; I87.2 Venous insufficiency (chronic) (peripheral); I73.9 Peripheral vascular disease, unspecified; E11.59 Type 2 diabetes mellitus with other circulatory complications; Z86.79 Personal history of other diseases of the circulatory system | CPT/HCPCS: 29581; 99214 ==

== ENCOUNTER → 2024-10-14 13:36 | Outpatient (REF) | payer OTHER, MEDICARE, SELFPAY | LOC: WOUND 13:36 | PROVIDERS: ATTENDING PHYSICIAN Surgery; FAMILY PHYSICIAN Family Medicine | DX: I87.312 Chronic venous hypertension (idiopathic) with ulcer of left lower extremity (principal); L97.221 Non-pressure chronic ulcer of left calf limited to breakdown of skin; I87.2 Venous insufficiency (chronic) (peripheral); E11.59 Type 2 diabetes mellitus with other circulatory complications | CPT/HCPCS: 29581; 99213 ==

== ENCOUNTER → 2024-10-21 13:26 | Outpatient (REF) | payer OTHER, MEDICARE, SELFPAY | LOC: WOUND 13:26 | PROVIDERS: ATTENDING PHYSICIAN Surgery | DX: I87.312 Chronic venous hypertension (idiopathic) with ulcer of left lower extremity (principal); L97.221 Non-pressure chronic ulcer of left calf limited to breakdown of skin; I87.2 Venous insufficiency (chronic) (peripheral); I73.9 Peripheral vascular disease, unspecified; E11.59 Type 2 diabetes mellitus with other circulatory complications; Z86.79 Personal history of other diseases of the circulatory system | CPT/HCPCS: 29581; 99213 ==

== ENCOUNTER → 2024-10-28 13:10 | Outpatient (REF) | payer OTHER, MEDICARE, SELFPAY | LOC: WOUND 13:10 | PROVIDERS: ATTENDING PHYSICIAN Surgery; FAMILY PHYSICIAN Family Medicine | DX: I87.312 Chronic venous hypertension (idiopathic) with ulcer of left lower extremity (principal); L97.221 Non-pressure chronic ulcer of left calf limited to breakdown of skin; I87.2 Venous insufficiency (chronic) (peripheral); E11.51 Type 2 diabetes mellitus with diabetic peripheral angiopathy without gangrene; Z86.79 Personal history of other diseases of the circulatory system | CPT/HCPCS: 29581 ==

== ENCOUNTER → 2024-11-04 09:57 | Outpatient (REF) | payer OTHER, MEDICARE, SELFPAY | LOC: WOUND 09:57 | PROVIDERS: ATTENDING PHYSICIAN Surgery; FAMILY PHYSICIAN Family Medicine | DX: I87.313 Chronic venous hypertension (idiopathic) with ulcer of bilateral lower extremity (principal); L97.221 Non-pressure chronic ulcer of left calf limited to breakdown of skin; L97.211 Non-pressure chronic ulcer of right calf limited to breakdown of skin; I87.2 Venous insufficiency (chronic) (peripheral); I73.9 Peripheral vascular disease, unspecified; E11.59 Type 2 diabetes mellitus with other circulatory complications; Z86.79 Personal history of other diseases of the circulatory system | CPT/HCPCS: 29581; 99214 ==

== ENCOUNTER → 2024-11-09 08:18 | Outpatient (REF) | payer OTHER, MEDICARE, SELFPAY | LOC: RAD 08:18 | PROVIDERS: ATTENDING PHYSICIAN Surgery; FAMILY PHYSICIAN Family Medicine | DX: I87.312 Chronic venous hypertension (idiopathic) with ulcer of left lower extremity (principal); I73.9 Peripheral vascular disease, unspecified; I87.2 Venous insufficiency (chronic) (peripheral) | CPT/HCPCS: 93922; 93970 ==

== ENCOUNTER → 2024-11-11 13:25 | Outpatient (REF) | payer OTHER, MEDICARE, SELFPAY | LOC: WOUND 13:25 | PROVIDERS: ATTENDING PHYSICIAN Surgery; FAMILY PHYSICIAN Family Medicine | DX: I87.313 Chronic venous hypertension (idiopathic) with ulcer of bilateral lower extremity (principal); L97.221 Non-pressure chronic ulcer of left calf limited to breakdown of skin; L97.211 Non-pressure chronic ulcer of right calf limited to breakdown of skin; I87.2 Venous insufficiency (chronic) (peripheral); I73.9 Peripheral vascular disease, unspecified; E11.59 Type 2 diabetes mellitus with other circulatory complications; Z86.79 Personal history of other diseases of the circulatory system | CPT/HCPCS: 29581; 99213 ==

== ENCOUNTER → 2024-11-18 11:19 | Outpatient (REF) | payer OTHER, MEDICARE, SELFPAY | LOC: WOUND 11:19 | PROVIDERS: ATTENDING PHYSICIAN Surgery; FAMILY PHYSICIAN Family Medicine | DX: I87.313 Chronic venous hypertension (idiopathic) with ulcer of bilateral lower extremity (principal); L97.221 Non-pressure chronic ulcer of left calf limited to breakdown of skin; I87.2 Venous insufficiency (chronic) (peripheral); I73.9 Peripheral vascular disease, unspecified; E11.59 Type 2 diabetes mellitus with other circulatory complications; Z86.79 Personal history of other diseases of the circulatory system | CPT/HCPCS: 99213 ==

== ENCOUNTER → 2024-11-25 11:04 | Outpatient (REF) | payer OTHER, MEDICARE, SELFPAY | LOC: WOUND 11:04 | PROVIDERS: ATTENDING PHYSICIAN Surgery; FAMILY PHYSICIAN Family Medicine | DX: I87.313 Chronic venous hypertension (idiopathic) with ulcer of bilateral lower extremity (principal); I87.2 Venous insufficiency (chronic) (peripheral); L97.221 Non-pressure chronic ulcer of left calf limited to breakdown of skin; I73.9 Peripheral vascular disease, unspecified; E11.59 Type 2 diabetes mellitus with other circulatory complications; Z86.79 Personal history of other diseases of the circulatory system | CPT/HCPCS: 99213 ==

== ENCOUNTER → 2024-11-25 11:40 | Outpatient (REF) | payer OTHER, MEDICARE, SELFPAY ==
[2024-11-25 14:21] LABS: Glycohemoglobin (HgbA1c) 6.6 % (4.0-5.6)
[2024-11-25 14:25] LABS: Microalbumin, Random Urine 0.8 mg/dl (0.6-1.7); Microalbumin/creatinine Ratio 26.1 mg/g
[2024-11-25 14:36] LABS: ALT (SGPT) 19 U/L (0-50); AST (SGOT) 29 U/L (17-59); Albumin 4.5 g/dl (3.5-5.0); Alkaline Phosphatase 106 U/L (38-126); Blood Urea Nitrogen 12 mg/dl (9-20); Calcium 9.9 mg/dl (8.4-10.2); Carbon Dioxide 29 mmol/L (22-30); Chloride 102 mmol/L (98-107); Glucose 113 mg/dl (70-99); Potassium 4.7 mmol/L (3.5-5.1); Sodium 138 mmol/L (135-145); Total Bilirubin 0.9 mg/dl (0.2-1.3); Total Protein 7.3 g/dl (6.3-8.2); eGFR > 60.00
== END ==
LOC: REG 11:40
PROVIDERS: ATTENDING PHYSICIAN Family Medicine
DX: E11.59 Type 2 diabetes mellitus with other circulatory complications (principal); I10 Essential (primary) hypertension; Z79.01 Long term (current) use of anticoagulants; Z86.79 Personal history of other diseases of the circulatory system
CPT/HCPCS: 36415; 80053; 82043; 82570; 83036

== ENCOUNTER → 2024-12-02 14:03 | Outpatient (REF) | payer OTHER, MEDICARE, SELFPAY | LOC: WOUND 14:03 | PROVIDERS: ATTENDING PHYSICIAN Surgery; FAMILY PHYSICIAN Family Medicine | DX: I87.313 Chronic venous hypertension (idiopathic) with ulcer of bilateral lower extremity (principal); L97.221 Non-pressure chronic ulcer of left calf limited to breakdown of skin; I87.2 Venous insufficiency (chronic) (peripheral); I73.9 Peripheral vascular disease, unspecified; E11.59 Type 2 diabetes mellitus with other circulatory complications; Z86.79 Personal history of other diseases of the circulatory system | CPT/HCPCS: 99213 ==

== ENCOUNTER → 2024-12-13 11:31 | Outpatient (REF) | payer OTHER, MEDICARE, SELFPAY | LOC: WOUND 11:31 | PROVIDERS: ATTENDING PHYSICIAN Surgery; FAMILY PHYSICIAN Family Medicine | DX: I87.313 Chronic venous hypertension (idiopathic) with ulcer of bilateral lower extremity (principal); L97.221 Non-pressure chronic ulcer of left calf limited to breakdown of skin; I87.2 Venous insufficiency (chronic) (peripheral); I73.9 Peripheral vascular disease, unspecified; E11.59 Type 2 diabetes mellitus with other circulatory complications; Z86.79 Personal history of other diseases of the circulatory system | CPT/HCPCS: 99212 ==

== ENCOUNTER → 2025-01-26 07:41 | Outpatient (REF) | payer MEDICARE, OTHER, SELFPAY | LOC: HWEVLT 07:41 | PROVIDERS: ATTENDING PHYSICIAN Radiology Vascular & Interventional Radiology | DX: I83.022 Varicose veins of left lower extremity with ulcer of calf (principal); I87.2 Venous insufficiency (chronic) (peripheral); L97.229 Non-pressure chronic ulcer of left calf with unspecified severity | CPT/HCPCS: 36478; C1769 ==

== ENCOUNTER → 2025-02-07 07:51 | Outpatient (REF) | payer MEDICARE, OTHER, SELFPAY | LOC: HWEVLT 07:51 | PROVIDERS: ATTENDING PHYSICIAN Radiology Vascular & Interventional Radiology | DX: I83.892 Varicose veins of left lower extremity with other complications (principal) | CPT/HCPCS: 93971 ==